=== PATIENT | female | born 1970 | race Two or more races ===

== ENCOUNTER 2018-08-25 07:00 | Day surgery (SDC) | payer OTHER ==
[~2018-08-25] VITALS: Ht 152.4 cm; Wt 52.2 kg
[~2018-08-25 07:00] MED LIST: BUSPAR PO; CYMBALTA30 MG PO; PROTONIX40 MG PO; TOPROL XL50 M1 PO; TYLENOL ARTHRI650 MG PO; ZANAFLEX4 M1 PO; ZANTAC300 MG PO; [UNRECOGNIZED DRUG - OTHER] SL
[2018-08-26] MEDS ORDERED: BUSPIRONE HCL5 MG PO (10:02)
[2018-08-26] MEDS ORDERED: LEVSIN0.125 MG PO (10:04)
== END 2018-08-26 08:00 | disposition home or self-care (01) ==
LOC: CIR.AMB 07:00 → SURH 08:25 → O/R 08:25 → SURG 08:25 → O/R 21:21 → CIR.AMB 08-26 08:00 → SURG 08-26 15:43
DX: D27.0 Benign neoplasm of right ovary (principal); N83.11 Corpus luteum cyst of right ovary; K36 Other appendicitis